=== PATIENT | female | born 1940 | race Caucasian/White ===

== ENCOUNTER 2019-03-25 13:12 | Emergency (ER) | payer MEDICARE ==
--- NOTE | 2019-03-25 13:33 | ER Document Report ---
ED Medical Screen (RME) - General Chief Complaint: Leg Pain Stated Complaint: LEG PAIN Time Seen by Provider: 03/25/19 13:28 Primary Care Provider: JOSIAS SANTOS MD [Primary Care Provider] - Follow up as needed Mode of Arrival: Wheelchair Information source: Patient Notes: 78-year-old female presented to ED for painful red swollen knots to the left leg. She states she was sent by her primary care doctor. She states the pain is well and started a week ago. They are presently red and very tender to palpation. Patient states she has a history of high blood pressure cholesterol and hypothyroid. She also has history of shoulder surgery bilateral knee surgery and a hysterectomy. She denies smoking drinking or using any drugs she does not work and she lives with her family. Patient will be ordered a Doppler and CBC and chemistry and followed up with 1 of the providers in the emergency room. I have greeted and performed a rapid initial assessment of this patient. A comprehensive ED assessment and evaluation of the patient, analysis of test results and completion of medical decision making process will be conducted by an additional ED providers. Dictation of this chart was performed using voice recognition software; therefore, there may be some unintended grammatical errors. TRAVEL OUTSIDE OF THE [place] IN LAST 30 DAYS: No - Related Data Allergies/Adverse Reactions: No Known Allergies Allergy (Unverified 07/11/12 10:11) Past Medical History - Past Medical History Cardiac Medical History: Reports: Hx Hypertension Denies: Hx Heart Attack Pulmonary Medical History: Reports: Hx Asthma Neurological Medical History: Denies: Hx Cerebrovascular Accident, Hx Seizures GI Medical History: Denies: Hx Hepatitis, Hx Hiatal Hernia, Hx Ulcer Infectious Medical History: Denies: Hx Hepatitis Past Surgical History: Reports: Hx Hysterectomy. Denies: Hx Mastectomy, Hx Open Heart Surgery, Hx Pacemaker Physical Exam - Vital signs Vitals: Temp Pulse Resp BP Pulse Ox 98.1 F 75 16 135/65 H 97 03/25/19 13:21 03/25/19 13:21 03/25/19 13:21 03/25/19 13:21 03/25/19 13:21 Course - Vital Signs Vital signs: Temp Pulse Resp BP Pulse Ox 98.1 F 75 16 135/65 H 97 03/25/19 13:21 03/25/19 13:21 03/25/19 13:21 03/25/19 13:21 03/25/19 13:21 Doctor's Discharge - Discharge Referrals: JOSIAS SANTOS MD [Primary Care Provider] - Follow up as needed
[2019-03-25 13:58] LABS: ABSOLUTE BASOPHILS # (AUTO) 0.1 10^3/uL (0.0-0.2); ABSOLUTE EOSINOPHILS # (AUTO) 0.1 10^3/uL (0.0-0.6); ABSOLUTE MONOCYTES (AUTO) 0.5 10^3/uL (0.1-1.4); ABSOLUTE NEUT (AUTO) 3.2 10^3/uL (1.7-8.2); HEMATOCRIT 34.9 % (36.0-47.0); HEMOGLOBIN 11.5 g/dL (12.0-15.5); LYMPHOCYTES % (AUTO) 33.8 % (13-45); MEAN CORPUSCULAR HEMOGLOBIN 29.4 pg (27.0-33.4); MEAN CORPUSCULAR HGB CONC 32.9 g/dL (32.0-36.0); MEAN CORPUSCULAR VOLUME 89 fl (80-97); MONOCYTES % (AUTO) 7.7 % (3-13); PLATELET COUNT 178 10^3/uL (150-450); RED BLOOD COUNT 3.91 10^6/uL (3.72-5.28); RED CELL DISTRIBUTION WIDTH 13.4 % (11.5-14.0); SEGMENTED NEUTROPHILS % (AUTO) 55.5 % (42-78); TOTAL CELLS COUNTED % (AUTO) 100 %; WHITE BLOOD COUNT 5.8 10^3/uL (4.0-10.5)
[2019-03-25 14:16] LABS: ALANINE AMINOTRANSFERASE 16 U/L (9-52); ALBUMIN 3.6 g/dL (3.5-5.0); ALKALINE PHOSPHATASE 59 U/L (38-126); ANION GAP 8 (5-19); ASPARTATE AMINO TRANSFERASE 22 U/L (14-36); BILIRUBIN,DIRECT 0.2 mg/dL (0.0-0.4); BILIRUBIN,TOTAL 0.5 mg/dL (0.2-1.3); BLOOD UREA NITROGEN 19 mg/dL (7-20); CALCIUM 9.1 mg/dL (8.4-10.2); CARBON DIOXIDE 27 mmol/L (22-30); CHLORIDE 107 mmol/L (98-107); GLUCOSE 96 mg/dL (75-110); POTASSIUM 4.2 mmol/L (3.6-5.0); TOTAL PROTEIN 6.5 g/dL (6.3-8.2)
--- NOTE | 2019-03-25 15:08 | RADIOLOGY REPORT (SQ) ---
EXAM DESCRIPTION: VENOUS UNILATERAL LOWER COMPLETED DATE/TIME: 03/25/2019 2:56 pm REASON FOR STUDY: Red painful swollen knots to the left leg COMPARISON: None. TECHNIQUE: Dynamic and static mejia scale and color images acquired of the left leg venous system. Se lected spectral images acquired with additional compression and augmentation maneuvers. The contralat eral common femoral vein and saphenofemoral junction were also imaged. Images stored on PACS. LIMITATIONS: None. FINDINGS: COMMON FEMORAL: Normal phasicity, compression and augmentation. No visualized echogenic ma terial on mejia scale. No defects on color images. FEMORAL: Normal compression and augmentation. No visualized echogenic material on mejia scale. No defe cts on color images. POPLITEAL: Normal compression, augmentation. No visualized echogenic material on mejia scale. No defec ts on color images. CALF VESSELS: Thrombus in the posterior tibial vein. Limited visualization of the peroneal vein whic h appears grossly patent. GSV and SSV: Thrombus in the greater saphenous vein from the distal thigh to the knee. Patent SSV. ANY DEEP VENOUS INSUFFICIENCY: Not evaluated. ANY EVIDENCE OF POPLITEAL CYST: No. OTHER: No other significant finding. CONTRALATERAL COMMON FEMORAL VEIN AND SAPHENOFEMORAL JUNCTION: Normal phasicity, compression and augmentation. No visualized echogenic material on mejia scale. No de fects on color images. IMPRESSION: THROMBUS IN THE POSTERIOR TIBIAL VEIN. THROMBUS IN THE GREATER SAPHENOUS VEIN FROM THE DISTAL THIGH TO THE KNEE. COMMENT: Preliminary report was called by the technologist to the referring clinician's office at t he time of the exam. TECHNICAL DOCUMENTATION: JOB ID: [id number] [employer]- All Rights Reserved Reading location - IP/workstation name: [email or web address]
[2019-03-25] MEDS ORDERED: RIVAROXABAN 15 MG TABLET PO ONE (16:42)
--- NOTE | 2019-03-25 16:49 | ER Document Report ---
ED Extremity Problem, Lower - General Chief Complaint: Leg Pain Stated Complaint: LEG PAIN Time Seen by Provider: 03/25/19 13:28 Primary Care Provider: JOSIAS SANTOS MD [NO LOCAL MD] - Follow up as needed Mode of Arrival: Wheelchair TRAVEL OUTSIDE OF THE [place] IN LAST 30 DAYS: No - HPI Notes: Patient is a 78-year-old female that presents to the emergency department for chief complaint of redness and pain in her left leg. Patient states over the last week she has had increased redness and pain in the medial aspect of her left leg. The pain is worse when she is up ambulating and relieved somewhat with rest and elevation. She has been taking Tylenol at home which gives her some relief as well. She denies any associated chest pain, palpitations, near-syncope, numbness and weakness. Patient did contact her PCP by phone today and was referred to the ED for ultrasound of her leg. She denies any history of DVT or PE in the past. She denies recent surgery, travel, immobilizations, history of cancer, or exogenous estrogen use. Past Medical History: Hypertension, hyperlipidemia, hypothyroidism Past Surgical History: Hysterectomy, shoulder surgery, bilateral knee replacements Social History: Denies drugs alcohol and tobacco Family History: Reviewed and noncontributory for presenting illness Allergies: Reviewed, see documented allergy list. REVIEW OF SYSTEMS: CONSTITUTIONAL : No fever No chills No diaphoresis No recent illness EENT: No vision changes No congestion No sore throat CARDIOVASCULAR: No chest pain No palpitations RESPIRATORY: No shortness of breath No cough No difficulty breathing GASTROINTESTINAL: No abdominal pain No nausea No vomiting No diarrhea GENITOURINARY: No dysuria No hematuria No difficulty urinating MUSCULOSKELETAL: No back pain leg pain No arm pain SKIN: No rashes No lesions LYMPHATIC: No swollen, enlarged glands. NEUROLOGICAL: No lightheadedness No headache No weakness No paresthesias PSYCHIATRIC: No anxiety No depression PHYSICAL EXAMINATION: Vital signs reviewed, nursing noted reviewed. GENERAL: Well-appearing, well-nourished and in no acute distress. HEAD: Atraumatic, normocephalic. EYES: Eyes appear normal, extraocular movements intact, sclera anicteric, conjunctiva are normal. ENT: nares patent, oropharynx clear without exudates. Moist mucous membranes. NECK: Normal range of motion, supple without lymphadenopathy LUNGS: Breath sounds clear to auscultation bilaterally and equal. No wheezes rales or rhonchi. HEART: Regular rate and rhythm without murmurs, +2/4 bilateral DP pulses ABDOMEN: Soft, nontender, normoactive bowel sounds. No rebound, guarding, or rigidity. No masses appreciated. EXTREMITIES: Erythema and tenderness to palpation along the medial aspect of her left leg from proximal calf through mid thigh. R, good range of motion, no pitting or edema. NEUROLOGICAL: No focal neurological deficits. Moves all extremities spontaneously Motor and sensory grossly intact on exam. PSYCH: Normal mood, normal affect. SKIN: Warm, Dry, normal turgor, no rashes or lesions noted on exposed skin - Related Data Allergies/Adverse Reactions: No Known Allergies Allergy (Unverified 07/11/12 10:11) Past Medical History - General Information source: Patient - Social History Smoking Status: Never Smoker Frequency of alcohol use: None Drug Abuse: None Family History: Reviewed & Not Pertinent Patient has suicidal ideation: No Patient has homicidal ideation: No - Past Medical History Cardiac Medical History: Reports: Hx Hypertension Denies: Hx Heart Attack Pulmonary Medical History: Reports: Hx Asthma Neurological Medical History: Denies: Hx Cerebrovascular Accident, Hx Seizures Renal/ Medical History: Denies: Hx Peritoneal Dialysis GI Medical History: Denies: Hx Hepatitis, Hx Hiatal Hernia, Hx Ulcer Infectious Medical History: Denies: Hx Hepatitis Past Surgical History: Reports: Hx Hysterectomy, Hx Orthopedic Surgery - right shoulder, yovani. knees. Denies: Hx Mastectomy, Hx Open Heart Surgery, Hx Pacemaker Physical Exam - Vital signs Vitals: Temp Pulse Resp BP Pulse Ox 98.1 F 75 16 135/65 H 97 03/25/19 13:21 03/25/19 13:21 03/25/19 13:21 03/25/19 13:21 03/25/19 13:21 Course - Re-evaluation Re-evalutation: 03/25/19 17:00 Vitals reviewed. Nursing notes reviewed. Patient does have a DVT in her left lower extremity. The remainder of her blood work is unremarkable. She has no symptoms to suggest pulmonary embolism and has normal vital signs. I discussed her care with her primary care provider TEMO Castaneda at [facility]. We reviewed her medical history and do not see any contraindications to starting OAC. Patient will be given the first dose of Xarelto in the emergency room and will follow with Eden Caballero tomorrow in the office for reevaluation and to further discuss her anticoagulation. Patient counseled on return precautions. She is stable at discharge. Laboratory 03/25/19 03/25/19 13:45 13:45 WBC 5.8 RBC 3.91 Hgb 11.5 L Hct 34.9 L MCV 89 MCH 29.4 MCHC 32.9 RDW 13.4 Plt Count 178 Seg Neutrophils % 55.5 Lymphocytes % 33.8 Monocytes % 7.7 Eosinophils % 2.0 Basophils % 1.0 Absolute Neutrophils 3.2 Absolute Lymphocytes 2.0 Absolute Monocytes 0.5 Absolute Eosinophils 0.1 Absolute Basophils 0.1 Sodium 142.0 Potassium 4.2 Chloride 107 Carbon Dioxide 27 Anion Gap 8 BUN 19 Creatinine 0.62 Est GFR ( Amer) > 60 Est GFR (Non-Af Amer) > 60 Glucose 96 Calcium 9.1 Total Bilirubin 0.5 Direct Bilirubin 0.2 Neonat Total Bilirubin Not Reportable Neonat Direct Bilirubin Not Reportable Neonat Indirect Bili Not Reportable AST 22 ALT 16 Alkaline Phosphatase 59 Total Protein 6.5 Albumin 3.6 Venous Doppler Study 03/25/19 13:31 IMPRESSION: THROMBUS IN THE POSTERIOR TIBIAL VEIN. THROMBUS IN THE GREATER SAPHENOUS VEIN FROM THE DISTAL THIGH TO THE KNEE. - Vital Signs Vital signs: Temp Pulse Resp BP Pulse Ox 98.1 F 75 16 135/65 H 97 03/25/19 13:21 03/25/19 13:21 03/25/19 13:21 03/25/19 13:21 03/25/19 13:21 - Laboratory Result Diagrams: 03/25/19 13:45 03/25/19 13:45 Laboratory results interpreted by me: 03/25/19 13:45 Hgb 11.5 L Hct 34.9 L Discharge - Discharge Clinical Impression: DVT (deep venous thrombosis) Qualifiers: DVT location: lower extremity Affected thrombotic vein of extremity: unspecified lower extremity distal vein Chronicity: acute Laterality: left Qualified Code(s): I82.4Z2 - Acute embolism and thrombosis of unspecified deep veins of left distal lower extremity Condition: Stable Disposition: HOME, SELF-CARE Instructions: DVT Outpatient Treatment ([facility]) Additional Instructions: Please return to the emergency department if you have any worsening, or concern of your symptoms. Please return to the emergency department if you develop chest pain, difficulty breathing, severe abdominal pain, or ongoing vomiting. Please follow-up with your primary care physician in 2-3 days and any other recommended physicians. If prescribed, take all medications as directed. If you have any questions or concerns do not hesitate to return the emergency department for evaluation. Call Eden Caballero office at [facility] tomorrow morning or walk in for an appointment tomorrow Prescriptions: Rivaroxaban [Xarelto 15 mg Tablet] 15 mg PO BID #14 tablet Referrals: JOSIAS SANTOS MD [NO LOCAL MD] - Follow up tomorrow
[2019-03-25] MEDS ORDERED: ACETAMINOPHEN 325 MG TABLET PO ONE (16:58)
[2019-03-25 17:16] VITALS: BP 129/68
== END 2019-03-25 17:16 | disposition home or self-care (01) ==
LOC: ER 13:12
DX: I82.442 Acute embolism and thrombosis of left tibial vein (principal); I82.812 Embolism and thrombosis of superficial veins of left lower extremity; I10 Essential (primary) hypertension; J45.909 Unspecified asthma, uncomplicated
CPT/HCPCS: 99284; 36415; 85025; 80053; 93971; A9270

== ENCOUNTER → 2019-08-15 | Outpatient (CLI) | payer MEDICARE ==
--- NOTE | 2019-08-15 12:38 | RADIOLOGY REPORT (SQ) ---
EXAM DESCRIPTION: CAROTID DOPPLER COMPLETED DATE/TIME: 08/15/2019 11:57 am REASON FOR STUDY: DIZZINESS R42 DIZZINESS AND GIDDINESS I10 ESSENTIAL (PRIMARY) HYPERTENSION COMPARISON: None. TECHNIQUE: Grayscale ultrasound, Doppler velocity and spectra, and color Doppler images acquired of the extra-cranial carotid and vertebral arteries. Images stored on PACS. LIMITATIONS: None. FINDINGS: RIGHT CAROTID CCA Velocities: Within normal limits. ICA Velocities Peak systolic 58 cm/s. End diastolic 19 cm/s. Proximal ICA/CCA peak systolic ratio 0.81. Spectra normal. No significant plaque. LEFT CAROTID CCA Velocities: Within normal limits. ICA Velocities Peak systolic 80 cm/s. End diastolic 23 cm/s. Proximal ICA/CCA peak systolic ratio 1.4. Spectra normal. No significant plaque. VERTEBRAL ARTERIES: Antegrade flow. Normal waveforms. SUBCLAVIAN ARTERIES: No finding. OTHER: No other significant finding. IMPRESSION: NO HEMODYNAMICALLY SIGNIFICANT STENOSIS. COMMENT: Quality ID #195: Velocity criteria are extrapolated from the diameter data as defined by t he Society of Radiologists in Ultrasound Consensus Conference. Radiology 2003: 229; 340-346. TECHNICAL DOCUMENTATION: JOB ID: [id number] [employer]- All Rights Reserved Reading location - IP/workstation name: [email or web address]
== END ==
LOC: SP 10:21
PROVIDERS: ATTEND Nurse Practitioner Family
DX: R42 Dizziness and giddiness (principal); I10 Essential (primary) hypertension
CPT/HCPCS: 93880

== ENCOUNTER → 2019-12-19 | Outpatient (CLI) | payer MEDICARE ==
--- NOTE | 2019-12-19 12:31 | RADIOLOGY REPORT (SQ) ---
EXAM DESCRIPTION: CHEST 2 VIEWS COMPLETED DATE/TIME: 12/19/2019 11:14 am REASON FOR STUDY: R05 COUGH, R06.2 WHEEZING COMPARISON: None. EXAM PARAMETERS: NUMBER OF VIEWS: two views TECHNIQUE: Digital Frontal and Lateral radiographic views of the chest acquired. RADIATION DOSE: NA LIMITATIONS: none FINDINGS: LUNGS AND PLEURA: No opacities, masses or pneumothorax. No pleural effusion. MEDIASTINUM AND HILAR STRUCTURES: No masses or contour abnormalities. HEART AND VASCULAR STRUCTURES: Heart normal size. No evidence for failure. BONES: No acute findings. HARDWARE: None in the chest. OTHER: No other significant finding. IMPRESSION: NO ACUTE RADIOGRAPHIC FINDING IN THE CHEST. TECHNICAL DOCUMENTATION: JOB ID: [id number] [employer]- All Rights Reserved Reading location - IP/workstation name: [email or web address]
== END ==
LOC: RAD 10:48
PROVIDERS: ATTEND Nurse Practitioner Family
DX: R05 Cough (principal); R06.2 Wheezing
CPT/HCPCS: 71046

== ENCOUNTER → 2020-06-04 | Outpatient (CLI) | payer MEDICARE ==
--- NOTE | 2020-06-04 15:13 | RADIOLOGY REPORT (SQ) ---
EXAM DESCRIPTION: VENOUS UNILATERAL LOWER IMAGES COMPLETED DATE/TIME: 06/04/2020 2:47 pm REASON FOR STUDY: EMBOLISM/THRMBOSIS OF LEFT TIBIAL VEIN M25.552 PAIN IN LEFT HIP COMPARISON: None. TECHNIQUE: Dynamic and static mejia scale and color images acquired of the left leg venous system. Se lected spectral images acquired with additional compression and augmentation maneuvers. The contralat eral common femoral vein and saphenofemoral junction were also imaged. Images stored on PACS. LIMITATIONS: None. FINDINGS: COMMON FEMORAL: Normal phasicity, compression and augmentation. No visualized echogenic ma terial on mejia scale. No defects on color images. FEMORAL: Normal compression and augmentation. No visualized echogenic material on mejia scale. No defe cts on color images. POPLITEAL: Normal compression, augmentation. No visualized echogenic material on mejia scale. No defec ts on color images. CALF VESSELS: Normal compression, augmentation. No visualized echogenic material on mejia scale. No de fects on color images. GSV and SSV: Normal compression, augmentation. No visualized echogenic material on mejia scale. No def ects on color images. ANY DEEP VENOUS INSUFFICIENCY: Not evaluated. ANY EVIDENCE OF POPLITEAL CYST: No. OTHER: No other significant finding. CONTRALATERAL COMMON FEMORAL VEIN AND SAPHENOFEMORAL JUNCTION: Normal phasicity, compression and augmentation. No visualized echogenic material on mejia scale. No de fects on color images. IMPRESSION: NO EVIDENCE DVT OR SVT IN THE LEFT LEG. TECHNICAL DOCUMENTATION: JOB ID: [id number] 2010 [employer]- All Rights Reserved Reading location - IP/workstation name: [email or web address]
== END ==
LOC: RAD 10:16
PROVIDERS: ATTEND Physician Assistant
DX: I82.442 Acute embolism and thrombosis of left tibial vein (principal); M79.89 Other specified soft tissue disorders
CPT/HCPCS: 93971

== ENCOUNTER → 2020-12-10 | Outpatient (CLI) | payer MEDICARE ==
--- NOTE | 2020-12-10 09:35 | WOMENS IMAGING REPORT ---
EXAM DESCRIPTION: BILAT DIAGNOSTIC MAMMO W/CAD; U/S BREAST UNILAT LIMITED IMAGES COMPLETED DATE/TIME: 12/10/2020 8:47 am; 12/10/2020 9:18 am REASON FOR STUDY: N64.52 NIPPLE DISCHARGE; RIGHT BREAST N64.52 R23.4 CHANGES IN SKIN TEXTURE N64.52 NIPPLE DISCHARGE COMPARISON: None. EXAM PARAMETERS: Standard craniocaudal and mediolateral oblique views of each breast recorded using digital acquisition. Subsequently, targeted sonographic evaluation was performed of the right breast. Read with the assistance of CAD: .[facility] - [employer] Version 9.2 LIMITATIONS: None. FINDINGS: RIGHT BREAST MASSES: No suspicious masses. CALCIFICATIONS: No new or suspicious calcifications. ARCHITECTURAL DISTORTION: None. ASYMMETRY: None noted. OTHER: Circumscribed nodular density at the 6 o'clock position localizes to the skin on mediolateral imaging. An additional circumscribed density seen adjacent to this finding likely represents additio nal skin finding. Targeted sonographic evaluation demonstrates no underlying cyst or mass. LEFT BREAST MASSES: No suspicious masses. CALCIFICATIONS: No new or suspicious calcifications. ARCHITECTURAL DISTORTION: None. ASYMMETRY: None noted. OTHER: A circumscribed nodular density at the 5:30 o'clock position localizes to the skin. IMPRESSION: No evidence of malignancy on today's examination. Bilateral inframammary fold skin lesi ons. BREAST DENSITY: b. There are scattered areas of fibroglandular density. BIRAD: ASSESSMENT: 2 Benign findings. RECOMMENDATION: RECOMMENDED FOLLOW UP: Birads 1 or 2: The patient should resume routine screening . SPECIFIC INTERVENTION/IMAGING/CONSULTATION RECOMMENDED:No additional imaging needed at this time. Re commend continued clinical evaluation of bilateral inframammary fold skin lesions. COMMUNICATION:The negative/benign results were communicated to the patient. COMMENT: The patient has been notified of the results by letter per MQSA requirements. Additional no tification policies are in place for contacting patient with suspicious or incomplete findings. Quality ID #225: The [employer] recommends an annual screening mammogram for women aged 40 years or over. This facility utilizes a reminder system to ensure that all patients receive reminder letters, and/or direct phone calls for appointments. This includes reminders for routine scr eening mammograms, diagnostic mammograms, or other Breast Imaging Interventions when appropriate. Th is patient will be placed in the appropriate reminder system. TECHNICAL DOCUMENTATION: FINDING NUMBER: (1) ASSESSMENT: (1) JOB ID: [id number] 2010 [employer]- All Rights Reserved Reading location - IP/workstation name: [email or web address]
--- NOTE | 2020-12-10 09:35 | WOMENS IMAGING REPORT ---
EXAM DESCRIPTION: BILAT DIAGNOSTIC MAMMO W/CAD; U/S BREAST UNILAT LIMITED IMAGES COMPLETED DATE/TIME: 12/10/2020 8:47 am; 12/10/2020 9:18 am REASON FOR STUDY: N64.52 NIPPLE DISCHARGE; RIGHT BREAST N64.52 R23.4 CHANGES IN SKIN TEXTURE N64.52 NIPPLE DISCHARGE COMPARISON: None. EXAM PARAMETERS: Standard craniocaudal and mediolateral oblique views of each breast recorded using digital acquisition. Subsequently, targeted sonographic evaluation was performed of the right breast. Read with the assistance of CAD: .[facility] - [employer] Version 9.2 LIMITATIONS: None. FINDINGS: RIGHT BREAST MASSES: No suspicious masses. CALCIFICATIONS: No new or suspicious calcifications. ARCHITECTURAL DISTORTION: None. ASYMMETRY: None noted. OTHER: Circumscribed nodular density at the 6 o'clock position localizes to the skin on mediolateral imaging. An additional circumscribed density seen adjacent to this finding likely represents additio nal skin finding. Targeted sonographic evaluation demonstrates no underlying cyst or mass. LEFT BREAST MASSES: No suspicious masses. CALCIFICATIONS: No new or suspicious calcifications. ARCHITECTURAL DISTORTION: None. ASYMMETRY: None noted. OTHER: A circumscribed nodular density at the 5:30 o'clock position localizes to the skin. IMPRESSION: No evidence of malignancy on today's examination. Bilateral inframammary fold skin lesi ons. BREAST DENSITY: b. There are scattered areas of fibroglandular density. BIRAD: ASSESSMENT: 2 Benign findings. RECOMMENDATION: RECOMMENDED FOLLOW UP: Birads 1 or 2: The patient should resume routine screening . SPECIFIC INTERVENTION/IMAGING/CONSULTATION RECOMMENDED:No additional imaging needed at this time. Re commend continued clinical evaluation of bilateral inframammary fold skin lesions. COMMUNICATION:The negative/benign results were communicated to the patient. COMMENT: The patient has been notified of the results by letter per MQSA requirements. Additional no tification policies are in place for contacting patient with suspicious or incomplete findings. Quality ID #225: The [employer] recommends an annual screening mammogram for women aged 40 years or over. This facility utilizes a reminder system to ensure that all patients receive reminder letters, and/or direct phone calls for appointments. This includes reminders for routine scr eening mammograms, diagnostic mammograms, or other Breast Imaging Interventions when appropriate. Th is patient will be placed in the appropriate reminder system. TECHNICAL DOCUMENTATION: FINDING NUMBER: (1) ASSESSMENT: (1) JOB ID: [id number] 2010 [employer]- All Rights Reserved Reading location - IP/workstation name: [email or web address]
== END ==
LOC: WI 08:21
PROVIDERS: ATTEND Physician Assistant
DX: N64.52 Nipple discharge (principal); R23.4 Changes in skin texture
CPT/HCPCS: 76642; 77066